=== PATIENT | female | born 2005 | race Two or more races ===

== ENCOUNTER 2025-08-04 08:07 | Outpatient (RCR) | payer MEDICAID, SELFPAY | END 2025-08-31 23:59 | disposition home or self-care (01) | LOC: SCTC 08:07 | PROVIDERS: PCP Nurse Practitioner Family; Referring Provider Physician Assistant Medical; Visit Provider Nurse Practitioner Family | DX: Z76.89 Persons encountering health services in other specified circumstances (principal); Z80.3 Family history of malignant neoplasm of breast | CPT/HCPCS: 99213; G0463 ==